=== PATIENT | female | born 1935 | race Caucasian/White ===

== ENCOUNTER → 2017-01-21 | Outpatient (CLI) | payer OTHER ==
[~2017-01-21] MED LIST: ASPIR 8181 M1 PO; ASPIRIN EC325 MG PO; Ambien PO; BENADRYL25 MG PO; CLOPIDOGREL75 MG PO; Colace PO; Feosol PO; HUMALOG100 UNIT/1 SQ; LANTUS 3 M100 UNITS1 SC; LANTUS100 UNIT/1 SQ; LEXAPRO10 MG PO; LOTENSIN40 MG PO; NEURONTIN300 MG PO; NITROSTAT0.4 MG SL; NORVASC10 MG PO; NOVOLOG PE100 UNITS/ SC; Neurontin PO; OMEPRAZOLE20 MG PO; PEPTO BISMOL262 MG PO; PREDNISONE20 MG PO; PROTONIX40 MG PO; Protonix PO; Senokot,Sennagen PO; TOPROL XL50 MG PO; TRAMADOL HCL50 MG PO; Tylenol Arthritis Ex PO; Ultram PO; Urecholine PO; VITAMIN D-32000 UNI2 PO; Vitamin D PO; ZANTAC150 MG PO; Zocor PO
== END | disposition home or self-care (01) ==
LOC: NUC 14:43
DX: R06.00 Dyspnea, unspecified (principal); R79.89 Other specified abnormal findings of blood chemistry
CPT/HCPCS: 78582; A9540; A9567